=== PATIENT | male | born 1995 | race Caucasian/White ===

== ENCOUNTER 2017-11-01 12:31 | Emergency (ER) | payer OTHER ==
[2017-11-01] MEDS: CLINDAMYCIN 150 MG CAP PO (13:29)
[2017-11-01] MEDS: LIDOCAINE 2% MDV 20 ML VIAL SC (13:29)
== END 2017-11-01 14:00 | disposition home or self-care (01) ==
LOC: M ED 12:31
DX: L05.01 Pilonidal cyst with abscess (principal)
CPT/HCPCS: 10060

== ENCOUNTER 2017-11-03 13:38 | Emergency (ER) | payer OTHER | END 2017-11-03 14:27 | disposition home or self-care (01) | LOC: M ED 13:38 | DX: L05.01 Pilonidal cyst with abscess (principal); Z79.2 Long term (current) use of antibiotics | CPT/HCPCS: 99282 ==

== ENCOUNTER 2018-02-17 17:16 | Emergency (ER) | payer OTHER | END 2018-02-17 17:47 | disposition home or self-care (01) | LOC: M ED 17:16 | DX: L05.01 Pilonidal cyst with abscess (principal) | CPT/HCPCS: 99282 ==

== ENCOUNTER 2020-04-23 12:50 | Emergency (ER) | payer BC, OTHER ==
[~2020-04-23] VITALS: Ht 180.3 cm; Wt 89.3 kg
[~2020-04-23 12:50] MED LIST: CLEO300C2 PO
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
[2020-04-23 14:41] LABS: BASO # 0.1 10^3/uL (0.0-0.2); BASO % 0.7 % (0.0-1.0); EOS # 0.1 10^3/uL (0.0-0.5); EOS % 1.3 % (0.0-3.0); HEMATOCRIT 44.1 % (42.0-52.0); HEMOGLOBIN 15.1 g/dl (13.5-17.5); LYMPH # 1.5 10^3/uL (1.5-5.0); LYMPH % 15.4 % (24.0-44.0); MEAN CORPUSCULAR HEMOGLOBIN 29.2 pg (27.0-33.0); MEAN CORPUSCULAR HGB CONC 34.2 g/dl (32.0-36.5); MEAN CORPUSCULAR VOLUME 85.3 fl (80.0-96.0); MONO # 0.9 10^3/uL (0.0-0.8); MONO % 9.5 % (0.0-5.0); NEUTROPHILS # 6.9 10^3/uL (1.5-8.5); NEUTROPHILS % 72.8 % (36.0-66.0); PLATELET COUNT, AUTOMATED 246 10^3/uL (150-450); RED BLOOD COUNT 5.17 10^6/uL (4.30-6.10); WHITE BLOOD COUNT 9.5 10^3/uL (4.0-10.0)
[2020-04-23 14:43] LABS: APPEARANCE, URINE CLEAR (CLEAR); BACTERIA, URINE AUTO 1+ (NEGATIVE); BILIRUBIN, URINE AUTO NEGATIVE (NEGATIVE); BLOOD, URINE BLOOD 2+ (NEGATIVE); COLOR, URINE YELLOW (YELLOW); GLUCOSE, URINE (UA) AUTO NEGATIVE (NEGATIVE); KETONE, URINE AUTO 1+ mg/dL (NEGATIVE); LEUKOCYTE ESTERASE, URINE AUTO NEGATIVE (NEGATIVE); MUCUS, URINE SMALL (NEGATIVE); NITRITE, URINE AUTO NEGATIVE (NEGATIVE); PROTEIN, URINE AUTO NEGATIVE (NEGATIVE); RBC, URINE AUTO 1 /HPF (0-3); SQUAMOUS EPITHELIAL CELL UR AU 0 /HPF (0-6); UROBILINOGEN, URINE AUTO 0.2 mg/dL (0.0-2.0); WBC, URINE AUTO 1 /HPF (0-3)
[2020-04-23] MEDS ORDERED: IBUP-1022 PO (15:14)
[2020-04-23 15:29] VITALS: BP 134/68
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
== END 2020-04-23 15:35 | disposition home or self-care (01) ==
LOC: M ED 12:50
DX: I88.0 Nonspecific mesenteric lymphadenitis (principal); R10.31 Right lower quadrant pain